=== PATIENT | female | born 1985 | race Caucasian/White ===

== ENCOUNTER 2022-07-10 14:53 | Emergency (ER) | payer OTHER ==
[~2022-07-10] VITALS: Ht 165.1 cm; Wt 59.0 kg
--- NOTE | 2022-07-10 15:30 | NUR ---
PT SEEN BY FOR EVPERLA
[2022-07-10] MEDS ORDERED: PSEUDOEPHEDRINE HCL 30 MG TABLET ONE (15:44)
--- NOTE | 2022-07-10 15:49 | NUR ---
SUDAFED PO GIVEN INDICATED, LESLIE WELL
--- NOTE | 2022-07-10 15:57 | NUR ---
Patient discharged to home in stable condition. Written and verbal after care instructions given. Patient verbalizes understanding of instruction.
[2022-07-10 15:58] VITALS: BP 130/78
[2022-07-10] MEDS ORDERED: PSEUDOEPHEDRINE HCL 30 MG TABLET PO ONE (16:00)
== END 2022-07-10 15:59 | disposition home or self-care (01) ==
LOC: ER 15:06
DX: J32.9 Chronic sinusitis, unspecified (principal); Z88.8 Allergy status to other drugs, medicaments and biological substances